=== PATIENT | female | born 2000 | race African-American/Black ===

== ENCOUNTER 2022-02-05 03:31 | Emergency (ER) | payer OTHER ==
[~2022-02-05] VITALS: Ht 165.1 cm; Wt 53.5 kg
--- NOTE | 2022-02-05 03:59 | NUR ---
SHIRA 59 FROM HOME FOR ETOH. "HAD 4 SHOTS". PT SLEEPING ON ASSESSMENT BREATHING EVEN AND UNLABORED. PT PLACED ON MONITOR AND PULSE OX AND ALL V/S WNL.
--- NOTE | 2022-02-05 04:01 | NUR ---
[employer] AT BEDSIDE
--- NOTE | 2022-02-05 08:15 | NUR ---
THE PATIENT IS ALERT AND ORIENTED X4. IN ROOM AIR AND DENIES SOB. RESPIRATION REGULAR AND UNLABORED. DENIES PAIN. DENIES SI/HI. DENIES HAVING ANY HALLUCINATIONS. WILL CONTINUE TO MONITOR THE PATIENT.
[2022-02-05 09:00] VITALS: BP 115/61
--- NOTE | 2022-02-05 09:00 | NUR ---
Patient discharged to home in stable condition. Written and verbal after care instructions given. Patient verbalizes understanding of instruction. Picked up by mom.
== END 2022-02-05 09:00 | disposition home or self-care (01) ==
LOC: ER 03:35
DX: F10.129 Alcohol abuse with intoxication, unspecified (principal); F32.A Depression, unspecified; F90.9 Attention-deficit hyperactivity disorder, unspecified type; Y90.9 Presence of alcohol in blood, level not specified
CPT/HCPCS: 82962-TC